=== PATIENT | female | born 1960 | race Caucasian/White ===

== ENCOUNTER 2020-04-11 09:12 | Emergency (ER) | payer OTHER ==
[2020-04-11] MEDS ORDERED: BACITRACIN 15 GM TUBE TOPICAL OINTMENT TP ONE (09:41)
--- NOTE | 2020-04-11 09:47 | PDOC ---
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 States her hands were clean, she was wearing gloves, and the razor blade was new. States she had bleeding immediately but not a significant amount of pain. She put a bandage over the wound and left it until this morning. Denies any skin redness or pain, pus drainage, numbness or tingling of the thumb tip, or any other additional injuries. States she does not know when her last tetanus vaccination was, and she usually prefers not to have any injections. Past History - Medical History Allergies/Adverse Reactions: Allergies Allergy/AdvReac Type Severity Reaction Status Date / Time No Known Allergies Allergy Verified 04/11/20 09:25 Home Medications: Ambulatory Orders NK [No Known Home Medication] 09/02/14 - Psycho-Social/Smoking History Smoking Status: No Smoking History: Never smoked Have you smoked in the past 12 months: No Number of Cigarettes Smoked Daily: 0 Review of Systems - Review of Systems Able to Perform ROS?: Yes Comments:: 04/11/20 09:51 GEN: no fever, chills, generalized weakness, or malaise HEENT: no ear pain, eye pain, throat pain or swelling, nosebleed, vision change, or loose teeth SKIN: right thumb laceration, no abrasions, or bruises CV: no chest pain, palpitations, or LOC RESP: no cough or SOB GI: no abdominal pain, nausea, vomiting, or black/bloody stool : no hematuria or flank pain/bruising MSK: no muscle weakness, muscle pain, joint pain, or joint swelling NECK/BACK: no neck pain, back pain, or trauma reported NEURO: no headache, seizure, numbness, tingling, focal weakness, or incontinence PSYCH: no suicidality, homicidality, or substance use *Physical Exam - Physical Exam 04/11/20 09:51 GENERAL: well-appearing, pleasant, anxious, A/Ox4, no distress, answers questions appropriately HEENT: PERRLA, EOMI, moist mucous membranes NECK/BACK: no midline ttp, no spinal step-off or deformity, no hematoma, full ROM, neck supple CARDIOVASCULAR: regular rate/rhythm, no MGR, strong peripheral pulses, capillary refill <2 seconds, extremities wwp, no edema LUNGS/RESPIRATORY: no respiratory distress, CTAB GI/ABDOMEN: symmetric [id number], normoactive BS, soft, no ttp, no midline pulsatile masses : no CVA tenderness MSK/EXTREMITIES: no muscle atrophy, no acute deformity SKIN: right thumb with white discoloration and wrinkling from being bandaged for many hours, radial aspect superficial 1.5 cm linear laceration with about 4mm portion partial thickness, no involvement of the nail bed or cuticle, no exposed tendon, ligamentous sheath, or muscle, no active bleeding or drainage, no erythema or warmth or tenderness of surrounding skin NEUROLOGICAL: left thumb r/m/u nerves intact motor and sensory, GCS 15, CN II- XII grossly intact, 5/5 strength proximally and distally, no facial droop Medical Decision Making - Medical Decision Making 04/11/20 09:55 59YOF without significant PMH p/w day-old kuulqurbevh-ha-isdrltt-thickness uncomplicated right dominant thumb laceration. Tdap not UTD but patient chooses not to have one today after thorough discussion of the risks of tetanus. Initial Vital Signs Temp Pulse Resp BP Pulse Ox 98.1 F 65 15 146/74 100 04/11/20 09:14 04/11/20 09:14 04/11/20 09:14 04/11/20 09:14 04/11/20 09:14 Provider Orders Category Date Time Status Bacitracin - Medication 04/11/20 09:41 Discontinued 1 applic TP ONCE ONE Medications Discontinued Medications Generic Name Dose Route Start Last Admin Trade Name Freq PRN Reason Stop Dose Admin Bacitracin 1 applic 04/11/20 09:41 04/11/20 09:55 Bacitracin - TP 04/11/20 09:42 1 applic ONCE ONE Administration Most likely simple uncomplicated laceration without contamination or FB or NV injury or any other deeper injury. The patient does not require suturing and in fact should not have sutures at this point given the timeframe, and the laceration is mostly superficial. She is offered Tdap and declines. She is counseled on risks of tetanus, states she will speak with her PCP about this SPIKE. She is counseled on return precautions to the ED especially specific e/o infection. She is appropriate for discharge home with close outpatient f/u. She will use Bacitracin this weekend, loose dressing applied before discharge, and she will allow the wound to dry out at home to allow healing. Discharge - Discharge Information Problems reviewed: Yes Clinical Impression/Diagnosis: Laceration of thumb Qualifiers: Encounter type: initial encounter Damage to nail status: without damage Foreign body presence: without foreign body Laterality: right Qualified Code(s): S61.011A - Laceration without foreign body of right thumb without damage to nail, initial encounter Condition: Good Disposition: HOME - Admission No - Follow up/Referral Referrals: Anabela Moore [Primary Care Provider] - - Patient Discharge Instructions Additional Instructions: You were seen in the ER for a thumb laceration. We did a full history and exam, and there are no concerning features to the laceration at this time. We did not suture the wound because it is not too deep, and it occurred too long ago for us to suture it. We put a swipe of bacitracin ointment on it and dressed it with a loose dressing. We offered you a tetanus vaccination, and after our discussion you decided not to have one today. Please leave the dressing on for 12-16 hours, then you can take it off, gently clean the wound, and put another thin swipe of antibiotic ointment on it. Leave it open to the air after that time. If you need to work and the laceration is still open, you can put a bandage over the wound. Let it air out whenever possible. Come back to the ER for any new or worsening s ymptoms, especially signs of infection like worsening skin redness, pus drainage, severe or worsening pain. Follow up with your regular doctor or return to the ER if you change your mind about the tetanus vaccination. - Post Discharge Activity Work/Back to School Note: Back to Work
[2020-04-11 10:02] VITALS: BP 146/74; PULSE 65; TEMP 98.1; BMI 21.9
== END 2020-04-11 10:05 | disposition home or self-care (01) ==
LOC: FER 09:12
DX: S61.011A Laceration without foreign body of right thumb without damage to nail, initial encounter (principal)
CPT/HCPCS: 99283-25